=== PATIENT | male | born 1955 | race Caucasian/White ===

== ENCOUNTER 2021-02-28 13:07 | Emergency (ER) | payer MEDICAID ==
[~2021-02-28] VITALS: Ht 170.2 cm; Wt 60.1 kg
--- NOTE | 2021-02-28 13:18 | PHYS DOC ---
General Adult HPI: HPI: Patient is a 65-year-old male brought in by EMS from [facility] for altered mental status that started approximately 1 hour prior to arrival. Per EMS report the patient stopped taking all his medications about 1 month ago but does not have any psychiatric history. No focal deficits on the stroke sc miguel. Blood sugar 105. Patient was initially somewhat combative for the reports but has been more cooperative and is alert and oriented, however not answering all questions and frequently repeating what the nurse and provider are saying or asking. Review of Systems: Review of Systems: All other systems within normal limits except for as noted in the HPI Physical Exam: PE: Constitutional: Well developed, well nourished, no acute distress, non-toxic appearance. [] HENT: Normocephalic, atraumatic, bilateral external ears normal, nose normal. [] Eyes: PERRLA, conjunctiva normal, no discharge. [] Neck: No rigidity, supple, no stridor. [] Cardiovascular: Regular rate and rhythm, brisk cap refill [] Lungs & Thorax: Non labored symmetric respirations, no tachypnea or respiratory distress [] Abdomen: Soft, nondistended. Skin: Warm, dry, no erythema, no rash. [] Back: Unremarkable Extremities: No deformities, range of motion grossly intact, no lower extremity edema [] Neurologic: Alert and oriented X 3, no focal deficits noted, repetitive question. [] Psychologic: Able to [] EKG: EKG: Sinus tachycardia, heart rate 100 use minute, left axis deviation, no ST elevation or depression, no ectopy. [] Radiology/Procedures: Radiology/Procedures: [address] [address] IMAGING REPORT Signed PATIENT: QIANA SIBLEY ACCOUNT: [id number] : 1955 LOCATION: ER AGE: 65 SEX: M EXAM STATUS: REG ER ORD. PHYSICIAN: SHADI FUENTES MD REASON: ams, repetitive speech PROCEDURE: CT CODE STROKE HEAD WO EXAM: Head CT without contrast. HISTORY: Stroke. TECHNIQUE: Computed tomographic images of the head were obtained without contra st. *One or more of the following individualized dose reduction techniques were utilized for this examination: 1. Automated exposure control. 2. Adjustment of the mA and/or kV according to patient size. 3. Use of iterative reconstruction technique. COMPARISON: None. FINDINGS: There is no acute or subacute extra-axial or intraparenchymal hemorrhage. There is no mass effect or midline shift. There is no hydrocephalus. There are areas of decreased attenuation within the cerebral white matter, nonspecific and likely related to chronic small vessel disease. There is cerebral volume loss. There is a right telly bullosa. There is a chronic right lamina papyracea fracture. The mastoid air cells are unremarkable. There is no suspicious calvarial lesion. IMPRESSION: 1. No acute intracranial finding. Note is made that MRI is more sensitive for acute infarction. 2. Bilateral cerebral white matter changes, most commonly due to chronic small vessel disease in a patient of this age. Findings were discussed with Dr. Fuentes in the ED at 1340 hours on 02/28/2021. FOR INTERNAL CODING PURPOSES RESULT CODE: (C) Electronically signed by: Debbie Kinney MD (02/28/2021 1:41 PM) [id number] DICTATED AND SIGNED BY: DEBBIE KINNEY MD DATE: 02/28/21 1340 CC: SHADI FUENTES MD; PCP,NO ~MTH0 0 [] Heart Score: C/O Chest Pain: No Risk Factors: Risk Factors: DM, Current or recent (<one month) smoker, HTN, HLP, family history of CAD, obesity. Risk Scores: Score 0 - 3: 2.5% MACE over next 6 weeks - Discharge Home Score 4 - 6: 20.3% MACE over next 6 weeks - Admit for Clinical Observation Score 7 - 10: 72.7% MACE over next 6 weeks - Early Invasive Strategies Course & Med Decision Making: Course & Med Decision Making Pertinent Labs and Imaging studies reviewed. (See chart for details) Patient underwent following commands. Given fluids to be able to provide a urine sample. Per nursing staff at this facility he has had manic episodes, and were concerned about stroke. No evidence of acute infarct on CT. Work-up unremarkable. [] Dragon Disclaimer: Dragraul Disclaimer: This electronic medical record was generated, in whole or in part, using a voice recognition dictation system. Departure Departure: Impression: Primary Impression: AMS (altered mental status) Disposition: 03 LONG-TERM FACILITY Condition: STABLE Referrals: MAURICIO CAMPBELL MD Patient Instructions: SHADI Light MD Feb 28, 2021 13:18
--- NOTE | 2021-02-28 13:36 | EKG ---
[address] [address] Test Date: 2021-02-28 Test Time: 13:25:39 Pat Name: QIANA SIBLEY Department: Room: Gender: M [employer]: DEX : 1955 Requested By: SHADI FUENTES Order Number: [id number] Reading MD: Measurements Intervals [place] Rate: 122 P: 7 MO: 156 QRS: 250 QRSD: 90 T: 61 QT: 316 QTc: 451 Interpretive Statements SINUS TACHYCARDIA ABNORMAL RIGHT SUPERIOR AXIS DEVIATION R-S TRANSITION ZONE IN V LEADS DISPLACED TO THE RIGHT S1,S2,S3 PATTERN CONSIDER RIGHT VENTRICULAR HYPERTROPHY QRS(T) CONTOUR ABNORMALITY CONSISTENT WITH INFERIOR INFARCT PROBABLY OLD ABNORMAL ECG RI6.02 No previous ECG available for comparison
--- NOTE | 2021-02-28 13:44 | RAD ---
EXAM: Head CT without contrast. HISTORY: Stroke. TECHNIQUE: Computed tomographic images of the head were obtained without contrast. *One or more of the following individualized dose reduction techniques were utilized for this examina tion: 1. Automated exposure control. 2. Adjustment of the mA and/or kV according to patient size. 3. Use of iterative reconstruction technique. COMPARISON: None. FINDINGS: There is no acute or subacute extra-axial or intraparenchymal hemorrhage. There is no mass effect or midline shift. There is no hydrocephalus. There are areas of decreased attenuation within the cerebral white matter, nonspecific and likely rel ated to chronic small vessel disease. There is cerebral volume loss. There is a right telly bullosa. There is a chronic right lamina papyracea fracture. The mastoid air cells are unremarkable. There is no suspicious calvarial lesion. IMPRESSION: 1. No acute intracranial finding. Note is made that MRI is more sensitive for acute infarction. 2. Bilateral cerebral white matter changes, most commonly due to chronic small vessel disease in a pa tient of this age. Findings were discussed with Dr. Thorpe in the ED at 1340 hours on 02/28/2021. FOR INTERNAL CODING PURPOSES RESULT CODE: (C) Electronically signed by: Debbie Correa MD (02/28/2021 1:41 PM) [id number]
[2021-02-28 13:45] LABS: BASO # 0.1 x10^3/uL (0.0-0.2); BASO % 1 % (0-3); EOS % 0 % (0-3); HEMATOCRIT 46.7 % (39.0-53.0); HEMOGLOBIN 15.8 g/dL (13.0-17.5); LYMPH # 1.8 x10^3/uL (1.0-4.8); LYMPH % 17 % (24-48); MEAN CORPUSCULAR HEMOGLOBIN 31 pg (25-35); MEAN CORPUSCULAR HGB CONC 34 g/dL (31-37); MEAN CORPUSCULAR VOLUME 93 fL (79-100); MONO # 0.9 x10^3/uL (0.0-1.1); MONO % 9 % (0-9); NEUT # 7.6 x10^3uL (1.8-7.7); NEUT % 73 % (31-73); PLATELET COUNT 299 x10^3/uL (140-400); RED BLOOD COUNT 5.03 x10^6/uL (4.30-5.70); RED CELL DISTRIBUTION WIDTH 14.9 % (11.5-14.5); WHITE BLOOD COUNT 10.4 x10^3/uL (4.0-11.0)
[2021-02-28] MEDS ORDERED: IV NORMAL SALINE 500ML 500 ML IV ONE (13:45)
[2021-02-28 13:53] LABS: CREATININE 0.7 mg/dL (0.7-1.3); GFR 112.8; POTASSIUM 3.2 mmol/L (3.5-5.1)
[2021-02-28 14:06] LABS: ALBUMIN 4.1 g/dL (3.4-5.0); ALBUMIN/GLOBULIN RATIO 1.1 (1.0-1.7); MAGNESIUM 2.2 mg/dL (1.8-2.4); PHOSPHORUS 3.4 mg/dL (2.6-4.7); TOTAL BILIRUBIN 0.5 mg/dL (0.2-1.0); TOTAL PROTEIN 7.8 g/dL (6.4-8.2)
[2021-02-28] MEDS ORDERED: IV NORMAL SALINE 1,000ML 1,000 ML IV ONE (14:45)
[2021-02-28 17:13] LABS: BACTERIA,URINE 0 /HPF (0-FEW); BILIRUBIN,URINE NEG (NEG); CLARITY,URINE CLEAR; COLOR,URINE YELLOW; GLUCOSE,URINE NEG (NEG); NITRITE,URINE NEG (NEG); RBC,URINE OCC /HPF (0-2); UROBILINOGEN,URINE 0.2 mg/dL (0.2 mg/dL); WBC,URINE OCC /HPF (0-4)
[2021-02-28 17:20] LABS: BARBITURATES NEG (NEG); BENZODIAZEPINES NEG (NEG); CANNABINOIDS NEG (NEG); COCAINE NEG (NEG); METHADONE NEG (NEG); OPIATES NEG (NEG); PHENCYCLIDINE NEG (NEG)
[2021-02-28 17:22] LABS: AMPHETAMINE/METHAMPHETAMINE NEG (NEG)
[2021-02-28 19:04] VITALS: BP 169/118
== END 2021-02-28 17:38 ==
LOC: ER 13:07
DX: R41.82 Altered mental status, unspecified (principal)
CPT/HCPCS: 70450; 80053; 80307; 81001; 83605; 83735; 83880; 84100; 84484; 85025; 85610; 87040; 87205; 93005; 96361; 96374; 96376; 99285; G0480; J2060; J7030; J7040